=== PATIENT | female | born 1960 | race Caucasian/White ===

== ENCOUNTER 2021-02-05 10:17 | Outpatient (REF) | payer OTHER, SELFPAY ==
--- NOTE | ~2021-02-05 | MM_ITS ---
EXAMINATION: MM SCREENING DIGITAL BREAST TOMOSYNTHESIS, BILATERAL CLINICAL INFORMATION: Screening. Asymptomatic. The lifetime risk of breast cancer based on the Tyrer-Cuzick Model is 6%. COMPARISON: Mammography: 01/31/2020, 06/13/2018, 12/20/2016, 12/08/2016; targeted left breast ultrasound 12/20/2016 TECHNIQUE: Digital breast tomosynthesis is performed in both the craniocaudal and mediolateral oblique views along with computer-aided detection (CAD). Synthesized 2D images are generated from the tomosynthesis. FINDINGS: The breasts are heterogeneously dense, which may obscure small masses (ACR BI-RADS breast composition Category c). There are no significant masses, abnormal calcifications, or other abnormalities. Parenchymal pattern is similar to prior exams. There are some scattered punctate calcifications again noted. The axilla and skin contours are unremarkable. No significant changes. MM/MM tomosynthesis screening BI IMPRESSION: No mammographic evidence of malignancy. ASSESSMENT: BI-RADS 2: Benign RECOMMENDATION: Routine annual mammography screening. This patient's information was entered into a reminder system with a target due date for their next mammogram.
== END 2021-02-05 10:18 | disposition home or self-care (01) ==
LOC: HO.MAMMO 10:17
PROVIDERS: PCP Internal Medicine; Visit Provider Internal Medicine
DX: Z12.31 Encounter for screening mammogram for malignant neoplasm of breast (principal)
CPT/HCPCS: 77063; 77067

== ENCOUNTER 2021-09-14 08:22 | Outpatient (REF) | payer OTHER, SELFPAY ==
[2021-09-16 17:01] LABS: HPV mRNA E6/E7 rflx Not Detected (Not Detected)
== END 2021-09-14 08:23 | disposition home or self-care (01) ==
LOC: HO.LAB 08:22
PROVIDERS: PCP Internal Medicine; Visit Provider Advanced Practice Midwife
DX: Z01.419 Encounter for gynecological examination (general) (routine) without abnormal findings (principal); Z11.51 Encounter for screening for human papillomavirus (HPV)
CPT/HCPCS: 87624; 88142

== ENCOUNTER 2022-02-17 09:18 | Outpatient (REF) | payer OTHER, SELFPAY ==
--- NOTE | ~2022-02-17 | MM_ITS ---
EXAMINATION: MM SCREENING DIGITAL BREAST TOMOSYNTHESIS, BILATERAL CLINICAL INFORMATION: Screening. Asymptomatic. The lifetime risk of breast cancer based on the Tyrer-Cuzick Model is 7%. COMPARISON: Mammography: 02/05/2021, 01/31/2020, 06/26/2018 TECHNIQUE: Digital breast tomosynthesis is performed in both the craniocaudal and mediolateral oblique views along with computer-aided detection (CAD). Synthesized 2D images are generated from the tomosynthesis. FINDINGS: The breasts are heterogeneously dense, which may obscure small masses (ACR BI-RADS breast composition Category c). There are no significant masses, abnormal calcifications, or other abnormalities. Parenchymal pattern borders on average fibroglandular. There is no developing density or architectural abnormality. The axilla and skin contours are unremarkable. No significant changes. MM/MM tomosynthesis screening BI IMPRESSION: No mammographic evidence of malignancy. ASSESSMENT: BI-RADS 1: Negative RECOMMENDATION: Routine annual mammography screening. This patient's information was entered into a reminder system with a target due date for their next mammogram.
== END 2022-02-17 09:19 | disposition home or self-care (01) ==
LOC: HO.MAMMO 09:18
PROVIDERS: PCP Internal Medicine; Visit Provider Internal Medicine
DX: Z12.31 Encounter for screening mammogram for malignant neoplasm of breast (principal)
CPT/HCPCS: 77063; 77067

== ENCOUNTER → 2022-10-26 08:24 | Outpatient (BNVA) | payer OTHER, SELFPAY | PROVIDERS: PCP Internal Medicine; Visit Provider Advanced Practice Midwife ==

== ENCOUNTER 2023-02-20 09:12 | Outpatient (REF) | payer OTHER, SELFPAY | END 2023-02-20 09:13 | disposition home or self-care (01) | LOC: HO.MAMMO 09:12 | PROVIDERS: PCP Internal Medicine; Visit Provider Internal Medicine | DX: Z12.31 Encounter for screening mammogram for malignant neoplasm of breast (principal) | CPT/HCPCS: 77063; 77067 ==

== ENCOUNTER → 2023-02-20 09:30 | Outpatient (BNV) | payer OTHER, SELFPAY | PROVIDERS: PCP Internal Medicine; Visit Provider Radiology Diagnostic Radiology | DX: Z12.31 Encounter for screening mammogram for malignant neoplasm of breast (principal) | CPT/HCPCS: 77063; 77067 ==

== ENCOUNTER 2023-03-14 08:24 | Day surgery (SDC) | payer MEDICARE, SELFPAY ==
--- NOTE | 2023-03-13 09:05 | P.CONAN_ITS ---
Documented by User: Blanca Pang NP 03/13/23 09:05 HPI - Anesthesia Eval Consult details Narrative: 62yo F for Colonoscopy PMFSH Active Problems Active Problems: All Active Problems (Updated 03/13/23 @ 07:40 by Carla Linares RN) Encounter for annual routine gynecological examination (Acute) Past Medical History Medical History Vasovagal episode IBS (irritable bowel syndrome) Hx of abnormal cervical Pap smear Hypertension Family History Family History Family/Other History of breast cancer Father Colon cancer Maternal Grandmother Colon cancer Surgical History Surgical History H/O colonoscopy Social History Social History Alcohol intake: current Alcohol intake frequency: holidays/special occasions only Patient Tobacco Use Status: Former Tobacco user Quit Date: 1014 Use of substances other than those prescribed or required for medical reasons: No Are you DNR?: No Advance Directives: No Advance Directives Information Provided: Yes Sexual orientation: Straight/Heterosexual Gender identity: Female Meds Allergies Allergy/AdvReac Type Severity Reaction Status Date / Time amoxicillin [AMOXICILLIN] Allergy Unknown UNKNOWN Verified 10/26/22 08:33 penicillin V Allergy Unknown Unknown Verified 10/26/22 08:33 Home Medications Medication Instructions Recorded Confirmed Last Taken Type amlodipine 2.5 mg tablet 2.5 mg PO DAILY 09/14/21 03/14/23 Unknown History flaxseed oil 1,000 mg capsule 1,000 mg PO DAILY 09/14/21 03/14/23 Unknown History calcium carbonate 600 mg-vitamin 1 cap PO DAILY 10/26/22 03/14/23 Unknown History D3 12.5 mcg (500 unit) capsule (Calcium 600 with Vitamin D3) Exam Exam Date and Time: March 13, 2023904 Assessment and Plan Assessment Anesthesia Assessment: Chart Reviewed Documented by User: Petra Piedra MD 03/14/23 10:50 [facility], [facility] Past Medical History Medical History Vasovagal episode IBS (irritable bowel syndrome) Hx of abnormal cervical Pap smear Hypertension Family History Family History Family/Other History of breast cancer Father Colon cancer Maternal Grandmother Colon cancer Surgical History Surgical History H/O colonoscopy History of Problems with Anesthesia: No Social History Social History Alcohol intake: current Alcohol intake frequency: holidays/special occasions only Patient Tobacco Use Status: Former Tobacco user Quit Date: 1014 Use of substances other than those prescribed or required for medical reasons: No Are you DNR?: No Advance Directives: No Advance Directives Information Provided: Yes Sexual orientation: Straight/Heterosexual Gender identity: Female Meds Allergies Allergy/AdvReac Type Severity Reaction Status Date / Time amoxicillin [AMOXICILLIN] Allergy Unknown UNKNOWN Verified 10/26/22 08:33 penicillin V Allergy Unknown Unknown Verified 10/26/22 08:33 Home Medications Medication Instructions Recorded Confirmed Last Taken Type amlodipine 2.5 mg tablet 2.5 mg PO DAILY 09/14/21 03/14/23 Unknown History flaxseed oil 1,000 mg capsule 1,000 mg PO DAILY 09/14/21 03/14/23 Unknown History calcium carbonate 600 mg-vitamin 1 cap PO DAILY 10/26/22 03/14/23 Unknown History D3 12.5 mcg (500 unit) capsule (Calcium 600 with Vitamin D3) Exam Airway Mallampati Class: II TM Dist: >3cm Neck ROM: Full Loose/Missing/Broken Teeth: No Heart: RRR Lungs: CTS Assessment and Plan Assessment Anesthesia Assessment: Anesthesia Plan Discussed Final Anesthetic Review History of Problems with Anesthesia: No NPO: Yes ASA Class: II Final Preanesthetic Review: Meds/Allgs Chart Reviewed, Consent Obtained/Reviewed and Anes Risks/Benef Reviewed Patient Risk: Low Procedure Risk: Low Anesthetic Plan Anesthetic Plan: MAC: Disposition: Standard PACU
[2023-03-14 08:41] VITALS: BP 130/83; PULSE 2; RESP 18; TEMP 36.8; O2SAT 96; BMI 21.1
[2023-03-14 09:07] VITALS: BMI 20.6
[2023-03-14] MEDS: Lactated Ringers 1,000 ML 100 ML IVCONT (09:23)
--- NOTE | 2023-03-14 09:24 | PC.NURSE ---
mild vasovagal with iv start, hr low 50's (from 70's) and bp 100/63 (from 156/71) hot flash. hob reverse trendelenburg x 10 ivf LR w.o. immediate, cool cloth and smelling alcohol pad. pt reports feeling good at 0926. 0928 pt reports ok to put hob back up. hob to semifowlers bp /78 hr 54-69 sbrady. pt tolerating well. ivf slowed at 0932
--- NOTE | 2023-03-14 10:48 | MHC.SHP ---
Pre-Procedural Eval Section A Date of Service: 03/14/23 Section B Chief Complaint: Encounter for screening for malignant neoplasm Details of Present Illness: see H*P no changes Relevant Family History (Specify if Yes): No Relevant Social History: None Medical History: No relevant PMH Allergies: Allergies Allergy/AdvReac Type Severity Reaction Status Date / Time amoxicillin [AMOXICILLIN] Allergy Unknown UNKNOWN Verified 10/26/22 08:33 penicillin V Allergy Unknown Unknown Verified 10/26/22 08:33 Review of Systems Sugical H&P ROS: Negative: Constitution, Cardiovascular, Respiratory, Neurological, Psychiatric, Hem-Onc, Allergic/Immunologic, Gastrointestinal, Genitourinary, Musculoskeletal, Integumentary, Endocrine and Eyes/Ears/Nose/Throat Exam Surgical H&P Exam: Normal: HEENT, Normal: Heart, Normal: Lungs, Normal: Extremities, Normal: Abdomen, Normal: Skin and Normal: Neurological Plan Diagnosis/Plan: Unchanged I have reviewed the history and physical and performed a pertinent physical examination on my patient. No changes have occurred unless specified. Time Spent With Patient Time: Total time managing care of this patient today ____ minutes.
[2023-03-14 11:28] VITALS: BP 102/66; PULSE 64; RESP 18; TEMP 36.5; O2SAT 99
[2023-03-14 11:43] VITALS: BP 125/74; PULSE 52; RESP 18; O2SAT 98
--- NOTE | 2023-03-14 12:25 | OP_ITS ---
DATE OF SERVICE: 03/14/2023 SURGEON: Ruslan Alberto MD INDICATIONS: Colon cancer screening. PREOPERATIVE DIAGNOSIS: POSTOPERATIVE DIAGNOSIS: PROCEDURE PERFORMED: Colonoscopy to the terminal ileum with snare polypectomy. ESTIMATED BLOOD LOSS: COMPLICATIONS: ANESTHESIA: Monitored anesthesia care. ASSISTANTS: SPECIMENS: DESCRIPTION OF PROCEDURE: A history and physical was performed. The risks and benefits of the procedure were explained to the patient. Informed consent was obtained. The patient was placed in the left lateral decubitus position. A digital rectal exam was performed and was found to be normal. The Olympus pediatric video colonoscope was introduced into the rectum and advanced to the cecum. The cecum was identified by transillumination, palpation, and identification of ileocecal valve. Examination was performed. The scope was removed. She tolerated the procedure well and was returned to the recovery area in stable condition. FINDINGS: The terminal ileum was examined and appeared normal. The visualized colonic mucosa was within normal limits without evidence of masses or ulcers. In the right colon was an 8 x 10 mm polyp, which was removed with a hot snare and recovered via suction. No other polyps were identified. The quality of the prep was good. Retroflexed examination showed internal hemorrhoids. External hemorrhoids were noted on withdrawal of the colonoscope. IMPRESSION: Colon polyp. RECOMMENDATION: Follow up the biopsy results. MD ROBIN Costa/MIRIAN / [id number]
== END 2023-03-14 12:13 | disposition home or self-care (01) ==
PROVIDERS: PCP Internal Medicine; Visit Provider Internal Medicine Gastroenterology
PROC: 0DJD8ZZ Inspection of Lower Intestinal Tract, Via Natural or Artificial Opening Endoscopic (ICD-10-PCS; CPT 45378; principal; 2023-03-14 09:30)
DX: Z12.11 Encounter for screening for malignant neoplasm of colon (principal); Z86.010 Personal history of colon polyps; Z80.0 Family history of malignant neoplasm of digestive organs; D12.2 Benign neoplasm of ascending colon; K64.8 Other hemorrhoids; K64.4 Residual hemorrhoidal skin tags; K58.2 Mixed irritable bowel syndrome; I10 Essential (primary) hypertension; Z79.899 Other long term (current) drug therapy; Z88.1 Allergy status to other antibiotic agents
CPT/HCPCS: 45385; 88305

== ENCOUNTER 2023-05-08 16:00 | Outpatient (RCR) | payer MEDICARE, SELFPAY | END 2023-05-29 13:41 | disposition home or self-care (01) | LOC: HO.PT 16:00 | PROVIDERS: PCP Internal Medicine; Visit Provider Advanced Practice Midwife | DX: M99.05 Segmental and somatic dysfunction of pelvic region (principal); N81.89 Other female genital prolapse; N81.4 Uterovaginal prolapse, unspecified | CPT/HCPCS: 97112; 97161 ==

== ENCOUNTER 2023-11-07 08:54 | Outpatient (AMB) | payer MEDICARE, SELFPAY ==
[2023-11-07 09:01] VITALS: BP 120/80; BMI 21.4
--- NOTE | 2023-11-07 09:01 | A.OFFVIS_ITS ---
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 She is doing well with no concerns. Saw the pelvic pulling unit floorhand year and feels better. Attempting to eat a healthy diet with calcium and vitamin D and stays active with exercise-walks, yoga and gardens. Currently sexually active w/. Mild irritation w/heat. STI testing offered; she declined. Last pap smear; 2021. Last mammogram; 2022. Colonoscopy is UTD. Denies any family history of breast, ovarian or colon cancer. [facility] Medical History (Updated 11/07/23 @ 09:24 by Annabella Mauricio CNM) Vasovagal episode IBS (irritable bowel syndrome) Hx of abnormal cervical Pap smear Hypertension Surgical History H/O colonoscopy Family History Family/Other History of breast cancer Father Colon cancer Maternal Grandmother Colon cancer Social History Alcohol intake: current Alcohol intake frequency: holidays/special occasions only Patient Tobacco Use Status: Never used Tobacco Sexual orientation: Straight/Heterosexual Gender identity: Female Female Reproductive History Menstrual Age of Menarche: 12 Duration of menses: 3-5 days control method: none Total pregnancies: 4 Full term: 4 Date of last pap smear: 09/15/21 (negative) History of abnormal pap smear: Yes (2014,abn.pap) Date of Mammogram: 02/20/23 (negative) History of abnormal mammogram: No Review of Systems Const All systems reviewed & are unremarkable except as noted in HPI and below Reports as per HPI Eyes Reports no additional complaints ENT Reports no additional complaints Card Reports no additional complaints Resp Reports no additional complaints GI Reports as per HPI and Reports no additional complaints Reports as per HPI Musc Reports no additional complaints Skin/Breast Reports as per HPI Neuro Reports no additional complaints Psych Reports no additional complaints Endo Reports no additional complaints Monty/Lymph Reports no additional complaints Aller/Immun Reports no additional complaints Physical Exam Vital Signs: Last Vital Signs BP 120/80 11/07/23 09:01 BMI result Body Mass Index 21.4 Const General: cooperative, healthy appearing, no acute distress, well developed and alert Orientation/consciousness: patient oriented x3 HEENT Head: Yes normal to inspection Eyes General: appearance normal, both eyes and all related structures Neck Neck: Yes normal visual inspection Thyroid: Thyroid normal Chest Chest palpation & inspection: normal inspection of the chest and other (no puckering, dimpling, peau de orange, retraction, discharge, masses) Breast/axilla inspection: normal inspection of the breasts Breast/axilla palpation: normal palpation of the breasts Resp Effort & Inspection: normal respiratory effort GI Inspection: Yes normal to inspection Palpation (GI): Soft to palpation Rectal Exam - Female: deferred (Internal exam) and visual inspection normal General: Yes bladder normal to palpation External Female Exam: normal external appearance and normal appearance of the urethra Speculum Exam - Vagina: normal appearance of the vagina, normal palpation, normal vaginal discharge and vagina atrophic Speculum Exam - Cervix: normal appearance of the cervix and normal palpation Bimanual exam- vagina & uterus: normal bimanual exam, normal palpation, uterine size normal, bladder normal to palpation, normal palpation and non-tender Bimanual Exam- Adnexa, other: no masses and cystocele Skin General skin exam: no rashes or lesions noted Rashes: no rashes Neuro General: patient oriented x3 Cognition (Neuro): normal cognition Extrem General: Yes normal to inspection Psych Attitude: cooperative Thought process: Normal thought process present Assessment & Plan Assessment & Plan (1) Encounter for well woman exam with routine gynecological exam: Code(s): Z01.419 - Encounter for gynecological examination (general) (routine) without abnormal findings Category: Medical Plan Discussed: Current recommendations for pap smears per ASCCP guidelines. Breast awareness, periodic self breast exams and yearly mammogram. Maintain a healthy lifestyle, well balanced diet including Calcium 1,200 mg and Vitamin D 600 IU daily, and routine exercise. Opts to have bone density ordered by her primary care. Contact the office with any postmenopausal bleeding. Patient verbalizes understanding and agrees to the plan of care. She was given opportunity to ask questions and all questions were answered to the best of my ability. 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 This note is constructed using voice recognition software. While every effort has been made to ensure accuracy, revenue cycle administrator errors may have been included. Coding Level of Care Code Est Pt Prev Care >65y(89943) Diagnoses Encounter for well woman exam with routine gynecological exam Z01.419
== END 2023-11-07 09:50 | disposition home or self-care (01) ==
PROVIDERS: PCP Internal Medicine; Visit Provider Advanced Practice Midwife
DX: Z01.419 Encounter for gynecological examination (general) (routine) without abnormal findings (principal)
CPT/HCPCS: G0101

== ENCOUNTER → 2023-11-07 08:54 | Outpatient (BNVA) | payer MEDICARE, SELFPAY | PROVIDERS: Visit Provider Advanced Practice Midwife | DX: Z01.419 Encounter for gynecological examination (general) (routine) without abnormal findings (principal); Z78.0 Asymptomatic menopausal state | CPT/HCPCS: G0101 ==

== ENCOUNTER 2024-02-26 09:31 | Outpatient (REF) | payer MEDICARE, SELFPAY ==
--- NOTE | ~2024-02-26 | MM_ITS ---
EXAMINATION: MM SCREENING DIGITAL BREAST TOMOSYNTHESIS, BILATERAL CLINICAL INFORMATION: Screening. Asymptomatic. COMPARISON: Mammography: Comparison is made with available priors TECHNIQUE: Digital breast mammography with tomosynthesis is performed in both the craniocaudal and mediolateral oblique views along with computer-aided detection (CAD). FINDINGS: The breasts are heterogeneously dense, which may obscure small masses (ACR BI-RADS breast composition Category c). There are no significant masses, abnormal calcifications, or other abnormalities. MM/MM tomosynthesis screening BI IMPRESSION: No mammographic evidence of malignancy. ASSESSMENT: BI-RADS BI-RADS 1 - Negative RECOMMENDATION: Routine annual mammography screening. 1 year F/U This examination should not preclude the clinical evaluation of a suspicious palpable abnormality. This patient's information was entered into a reminder system with a target due date for their next mammogram. Electronically signed by: Danay Robles DO 03/08/2024 09:45 AM EDT
== END 2024-02-26 09:32 | disposition home or self-care (01) ==
LOC: HO.MAMMO 09:31
PROVIDERS: PCP Internal Medicine; Visit Provider Internal Medicine
DX: Z12.31 Encounter for screening mammogram for malignant neoplasm of breast (principal)
CPT/HCPCS: 77063; 77067

== ENCOUNTER → 2024-02-26 09:45 | Outpatient (BNV) | payer MEDICARE, SELFPAY | PROVIDERS: PCP Internal Medicine; Visit Provider Internal Medicine | DX: Z12.31 Encounter for screening mammogram for malignant neoplasm of breast (principal) | CPT/HCPCS: 77063; 77067 ==

== ENCOUNTER 2024-03-15 09:52 | Outpatient (REF) | payer MEDICARE, SELFPAY ==
--- NOTE | ~2024-03-15 | MM_ITS ---
EXAMINATION: BONE DENSITOMETRY CLINICAL INDICATION: Menopausal. COMPARISON: This is the patient's baseline examination. TECHNIQUE: Using a [employer] DXA System (software version: 13.1) manufactured by [employer], dual-energy x-ray absorptiometry was performed of the lumbar spine and left hip. The images are of good technical quality. Summary results are attached. FINDINGS: LEFT FEMUR, NECK: BMD 0.714 g/cm2, Z-score -0.7, T-score -2.3, osteopenia. LEFT FEMUR, TOTAL: BMD 0.731 g/cm2, Z-score -0.8, T-score -2.2, osteopenia. AP SPINE L1-L2 (excluding L3 and L4): The data of L1-L4 has been changed to exclude the L3 and L4 vertebral bodies, because degenerative sclerosis at these levels may cause overestimation of lumbar spine density. BMD 0.886 g/cm2, Z-score -0.5, T-score -2.3, osteopenia. IDENTIFIED RISK FACTORS: Menopause. HISTORY OF FRACTURE: None listed. MEDICATIONS: Calcium supplements or multivitamin, vitamin D. MM/XR DEXA axial skeleton IMPRESSION: 1. DIAGNOSIS: Osteopenia based on the lowest T-score value of -2.3 in the femoral neck and lumbar spine applying World Health Organization criteria. 2. 10-YEAR FRACTURE RISK PREDICTION, FRAX: Major osteoporotic fracture (clinical spine, forearm, hip or shoulder) 11.7%. Hip fracture 2.4%. 3. Treatment Recommendations: NOF guidelines recommend consideration for treatment in postmenopausal women and men age 50 and older presenting with the following: -A hip or vertebral (clinical or morphometric) fracture. -T-score less than or equal to -2.5 at the femoral neck or spine after appropriate evaluation to exclude secondary causes. -Low bone mass at the hip or spine and a 10-year fracture probability by FRAX of greater than or equal to 3% for hip fracture or greater than or equal to 20% for major osteoporotic fracture based on the [place] adapted WHO algorithm. 4. Other Recommendations: All treatment decisions require clinical judgment and consideration of individual patient factors, including patient preferences, comorbidities, previous drug use, risk factors not captured in the FRAX model (e.g. frailty, falls, vitamin D deficiency, increased bone turnover, interval significant decline in bone density) and possible under or overestimation of fracture risk by FRAX. Additional medical evaluation for secondary cause of low bone mineral density may be appropriate. FUTURE SCAN RECOMMENDATION: People with diagnosed cases of osteoporosis or at high risk for fracture should have regular bone mineral density tests. For patients eligible for Medicare, routine testing is allowed once every 2 years. The testing frequency can be increased to one year for patients who have rapidly progressing disease, those who are receiving or discontinuing medical therapy to restore bone mass, or have additional risk factors. Electronically signed by: Asael Blackman MD 03/25/2024 09:09 AM EDT
== END 2024-03-15 09:53 | disposition home or self-care (01) ==
LOC: HO.MAMMO 09:52
PROVIDERS: PCP Internal Medicine; Visit Provider Internal Medicine
DX: Z13.820 Encounter for screening for osteoporosis (principal); Z78.0 Asymptomatic menopausal state
CPT/HCPCS: 77080

== ENCOUNTER 2025-03-07 09:46 | Outpatient (REF) | payer MEDICARE, SELFPAY ==
--- NOTE | ~2025-03-07 | MM_ITS ---
EXAMINATION: MM SCREENING DIGITAL BREAST TOMOSYNTHESIS, BILATERAL CLINICAL INFORMATION: Screening. Asymptomatic. COMPARISON: Mammography: Comparison is made with available priors TECHNIQUE: Digital breast mammography with tomosynthesis is performed in both the craniocaudal and mediolateral oblique views along with computer-aided detection (CAD). FINDINGS: The breasts are heterogeneously dense, which may obscure small masses. There are no significant masses, abnormal calcifications, or other abnormalities. MM/MM tomosynthesis screening BI IMPRESSION: No mammographic evidence of malignancy. ASSESSMENT: BI-RADS Category 1: Negative RECOMMENDATION: Routine annual mammography screening. 1 year F/U This examination should not preclude the clinical evaluation of a suspicious palpable abnormality. This patient's information was entered into a reminder system with a target due date for their next mammogram. Electronically signed by: Danay Robles DO 03/11/2025 09:06 AM [facility]
--- OUTSIDE RECORDS SUMMARY | 2025-03-07 10:51 | XMS_ITS | Patient Health Record ---
Author Organization [facility] Address [address] [place] [address] Care Team Providers Care Building Manager Name Role Phone Raul Brandt MD Primary Care Provider Ruslan Navarro Jr Unavailable [phone] Allergies Allergen (clinical drug ingredient) Drug/Non Drug Allergy documented on EMR Reaction Allergy Type Onset Date Status amoxicillin Amoxicillin Unknown Drug Allergy Act malick Reason For Referral No Information Medications Medication SIG (Take, Route, Frequency, Duration) Notes Start Date End Date Status MiraLax (colon prep) 17 GM/SCOOP mixed with Gatorade or Crystal Light Orally begin at 5:00 p.m. the day before the procedure for 1 day 01/30/2023 Active Flax Seed Oil 1000 MG 1 Orally QD Active amLODIPine Besylate 10 MG 1 tablet Orally Once a day Active Calcium Active Problems Problem Type SNOMED Code ICD Code Onset Dates Problem Status W/U Status Risk Notes Problem 550306534 Colon cancer screening (Z12.11) Active confirmed Problem 636310328 Long-term curren t use of high risk medication other than anticoagulant (Z79.899) Active confirmed Problem 85694629 Other irritable bowel syndrome (K58.8) Active confirmed Problem 684707021 Abdominal crampi ng (R10.9) Active confirmed Plan Of Treatment Future Test Test Name Order Date COLONOSCOPY 08/23/2012 COLONOSCOPY 11/16/2017 COLONOSCOPY 12/27/2017 COLONOSCOPY 01/30/2023 Insurance Providers Payer Name Payer Address Payer Phone Subscriber Number Group Number Insured Name Patient Relationship to Insured Coverage Start Date Coverage End Date MEDICARE OF [employer] [address] [place] [address] [id number] LUIS A CASTELLANOS Self - patient is the insured [employer] ATT[employer] CLAIMS [address] [place] [address] [id number] LUIS A CASTELLANOS Self - patient is the insured Medical (General) History Medical History History ICD Code colonoscopy 12/29/17, tubular adenoma, fi ve-year followup hypertension Irritable bowel syndrome Surgical History Surgery Date(Month/Year) laser surgical surgery for atypical pap smears
== END 2025-03-07 09:47 | disposition home or self-care (01) ==
LOC: HO.MAMMO 09:46
PROVIDERS: PCP Internal Medicine; Visit Provider Internal Medicine
DX: Z12.31 Encounter for screening mammogram for malignant neoplasm of breast (principal)
CPT/HCPCS: 77063; 77067

== ENCOUNTER → 2025-03-07 10:00 | Outpatient (BNV) | payer MEDICARE, SELFPAY | PROVIDERS: PCP Internal Medicine; Visit Provider Internal Medicine | DX: Z12.31 Encounter for screening mammogram for malignant neoplasm of breast (principal) | CPT/HCPCS: 77063; 77067 ==

== ENCOUNTER 2025-06-11 13:12 | Outpatient (AMB) | payer MEDICARE, SELFPAY ==
[2025-06-11 13:32] VITALS: BP 132/70; BMI 22.7
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
--- OUTSIDE RECORDS SUMMARY | 2025-06-11 14:43 | XMS_ITS | Patient Health Record ---
Author Organization [facility] Address [address] [place] [address] Care Team Providers Care Supervisor Cigar Processing Name Role Phone GEORGE COLMEAN Primary Care Provider [phone] [place], NURSING Unavailable [phone] Allergies Allergen (clinical drug ingredient) Drug/Non Drug Allergy documented on EMR Reaction Allergy Type Onset Date Status amoxicillin Amoxicillin Amoxicillin Drug Allergy 03/20/2009 Active Reason For Referral No Information Medications Medication SIG (Take, Route, Frequency, Duration) Notes Start Date End Date Status Atorvastatin Calcium 10 MG Tablet 1 tablet Orally Once a day 08/19/2024 Active amLODIPine Besylate 2.5 MG Tablet 1 tablet Orally Once a day Active Immunizations Vaccine Route Administration Date Status Comme nts Influenza, Fluarix Quad Unknown 03/21/2012 Administered Pfizer COVID-19,mRNA, LNP-S, PF, 30mcg/0.3mL dose Unknown 09/06/2020 Administered [id number] IM Intramuscular 08/10/2023 Administered Td (Tetanus Diphtheria) Unknown 03/20/2009 Administered TDAP IM Intramuscular 07/11/2017 Administered Zoster recombinant Unknown 03/13/2019 Administered Zoster recombinant Unknown 06/20/2019 Administered Social History Tobacco Use: Social History Observation Description Date Details (start date - stop date) Never Smoker NA - NA Social History Drug/Alcohol: Social Info Question Answer Notes Alcohol Screen Did you have a drink containing alcohol in the past year? Yes How often did you have a drink containing alcohol in the past year? Monthly or less (1 point) How many drinks did you have on a tpical day when you were drinking in the past year? 1 or 2 (0 points) How often did you have six or more drinks on one occassion in the past year? Never (0 points) Points 1 Interpretation Negative Tobacco Use: Social Info Question Answer Notes Smoking Are you a: never smoker Additional Details Category Social Info Options Details General asbestos exposure: no alcohol use: yes occasionally drug use: no Coffee/Tea/Soda: yes Tea, Coffee, 2 Marital Status experience no Living with smokers in household no Problems Problem Type SNOMED Code ICD Code Onset Dates Problem Status W/U Status Risk Notes Problem Mixed hyperlipidemia (243169370) Mixed hyperlipidemia (E78.2) Active confirmed Problem Essential hypertension (81614977) Essential (primary) hypertension (I10) 07/25/19 12 Active confirmed Vital Signs Blood pressure diastolic 70 mm Hg 04/17/2025 Height 63.50 in 04/17/2025 Blood pressure systolic 126 mm Hg 04/17/2025 Weight 128.8 lbs 04/17/2025 BMI 22.46 kg/m2 04/17/2025 Encounters Encounter Location Date Provider Diagnosis [place] [id number] 03/06/2025 [facility] Essential (primary) hypertension I10 ; Mixed hyperlipidemia E78.2 and Encounter for general adult medical examination with abnormal findings Z00.01 [place] [id number] 04/17/2025 [facility] Essential (primary) hypertension I10 and Mixed hyperlipidemia E78.[address] [address] 03/06/2025 [facility] Medicare annual wellness visit, subsequent Z00.00 [facility] [address] [place], [place] [phone] 08/22/2024 [facility] Essential (primary) hypertension I10 and Mixed hyperlipidemia E78.2 [facility] [address] [place] [phone] 08/18/2024 [facility] [address] [place], [place] [phone] 02/09/2025 [facility] Essential (primary) hypertension I10 and Mixed hyperlipidemia E78.[address] [address] 10/17/2024 [facility] Essential (primary) hypertension I10 [place] [address] [place] [address] 10/16/2024 [facility] Assessments Encounter Date Diagnosis (ICD Code) Assessment Notes Treatment Notes Treatment Clinical Notes Section Notes 03/06/2025 Mixed hyperlipidemia (ICD-10 - E78.2) 1. Hypertension: High today Will maintain on presnet amlodipine and recheck in 6 weeks 2. Hyperlipidemia : Much better on atorvastatin Continue 3. RHCM: Mammogram is set up for next week. Colonoscopy appears to be due next year. She will double check with Dr. Alberto. 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 She is up-to-date with fasting blood work. She has a flu shot set up to get with her . She has had Prevnar 02/09/2025 Essential (primary) hypertension (ICD-10 - I10) 02/09/2025 Mixed hyperlipidemia (ICD-10 - E78.2) 08/22/2024 Essential (primary) hypertension (ICD-10 - I10) 1 hypertension: Well-controlled on present amlodipine. No changes made today 2. Hyperlipidemia: Newly on atorvastatin. She has made significant nutrition efforts but without significant improvement. Will plan to recheck her lipid panel at her physical 08/22/2024 Mixed hyperlipidemia (ICD-10 - E78.2) 1 hypertension: Well-controlled on present amlodipine. No changes made today 2. Hyperlipidemia: Newly on atorvastatin. She has made significant nutrition efforts but without significant improvement. Will plan to recheck her lipid panel at her physical 10/17/2024 Essential (primary) hypertension (ICD-10 - I10) 03/06/2025 Medicare annual wellness visit, subsequent (ICD-10 - Z00.00) 04/17/2025 Essential (primary) hypertension (ICD-10 - I10) 1 hypertension: Better today. Will continue current amlodipine. No changes made 2. Hyperlipidemia: Well-controlled on atorvastatin. Will continue same 04/17/2025 Mixed hyperlipidemia (ICD-10 - E78.2) 1 hypertension: Better today. Will continue current amlodipine. No changes made 2. Hyperlipidemia: Well-controlled on atorvastatin. Will continue same 03/06/2025 Essential (primary) hypertension (ICD-10 - I10) 1. Hypertension: High today Will maintain on presnet amlodipine and recheck in 6 weeks 2. Hyperlipidemia : Much better on atorvastatin Continue 3. RHCM: Mammogram is set up for next week. Colonoscopy appears to be due next year. She will double check with Dr. Alberto. 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 She is up-to-date with fasting blood work. She has a flu shot set up to get with her . She has had Prevnar 03/06/2025 Encounter for general adult medical examination with abnormal findings (ICD-10 - Z00.01) 1. Hypertension: High today Will maintain on presnet amlodipine and recheck in 6 weeks 2. Hyperlipidemia : Much better on atorvastatin Continue 3. RHCM: Mammogram is set up for next week. Colonoscopy appears to be due next year. She will double check with Dr. Alberto. 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 She is up-to-date with fasting blood work. She has a flu shot set up to get with her . She has had Prevnar Plan Of Treatment Future Test Test Name Order Date LIPID PANEL 01/21/2023 COMPREHENSIVE METABOLIC PANEL 01/21/2023 LIPID PANEL 08/10/2023 CBC (COMPLETE BLOOD COUNT) 08/10/2023 COMPREHENSIVE METABOLIC PANEL 08/10/2023 CBC, Platelet, w/o Differential-[id number] 03/05/2025 Lipid Panel-[id number] 03/05/2025 Comp. Metabolic Panel [id number] 2024 Next Appt Details Provider Name:GEORGE COLEMAN , 10/16/2025 08:45:00 AM, [address] [place], [address], Insurance Providers Payer Name Payer Address Payer Phone Subscriber Number Group Number Insured Name Patient Relationship to Insured Coverage Start Date Coverage End Date MEDICARE [employer] [address] [facility] [place] [address] [id number] LUIS A TORRES Self - patient is the insured 4 [employer] [address] [place] [address] [phone] [id number] LUIS A TORRES Self - patient is the insured 4 Medical (General) History Medical History History ICD Code Hypertension, Asthma, HCP: Steven Torres [phone] Surgical History Surgery Date(Month/Year)
--- OUTSIDE RECORDS SUMMARY | 2025-06-11 14:43 | XMS_ITS | Patient Health Record ---
Author Organization [facility] Address [address] [place] [phone] Care Team Providers Care Revenue Accounting Manager Name Role Phone Raul Brandt MD Primary Care Provider Ruslan Navarro Jr Unavailable Allergies Allergen (clinical drug ingredient) Drug/Non Drug Allergy documented on EMR Reaction Allergy Type Onset Date Status amoxicillin Amoxicillin Unknown Drug Allergy Act malick Reason For Referral No Information Medications Medication SIG (Take, Route, Frequency, Duration) Notes Start Date End Date Status MiraLax (colon prep) 17 GM/SCOOP Powder mixed with Gatorade or Crystal Light Orally begin at 5:00 p.m. the day before the procedure; Duration: 1 day 01/30/2023 Active Flax Seed Oil 1000 MG Capsule 1 Orally QD Active amLODIPine Besylate 10 MG Tablet 1 tablet Orally Once a day A ctive Calcium Active Social History Social History Additional Details Category Social Info Options Details Miscellaneous: Marital status: Occupation: retired Problems Problem Type SNOMED Code ICD Code Onset Dates Problem Status W/U Status Risk Notes Problem Colon cancer screening (317947694) Colon cancer screening (Z12.11) Active confirmed Problem Long-term current use of drug therapy (825445016) Long-term current use of high risk medication other than anticoagulant (Z79.899) Active confirmed Problem Irritable bowel syndrome (11797853) Other irritable bowel syndrome (K58.8) Active confirmed Problem Abdominal pain (60181955) Abdominal cramping (R10.9) Active confirmed Plan Of Treatment Future Test Test Name Order Date COLONOSCOPY 08/23/2012 COLONOSCOPY 11/16/2017 COLONOSCOPY 12/27/2017 COLONOSCOPY 01/30/2023 Insurance Providers Payer Name Payer Address Payer Phone Subscriber Number Group Number Insured Name Patient Relationship to Insured Coverage Start Date Coverage End Date MEDICARE OF [place] [address] [place] [id number] LUIS A CASTELLANOS Self - patient is the insured [employer] CLAIM[employer] [address] [place] [phone] [id number] LUIS A CASTELLANOS Self - patient is the insured Medical (General) History Medical History History ICD Code colonoscopy 12/29/17, tubular adenoma, fi ve-year followup hypertension Irritable bowel syndrome Surgical History Surgery Date(Month/Year) laser surgical surgery for atypical pap smears
== END 2025-06-11 14:19 | disposition home or self-care (01) ==
LOC: HO.HWSM 13:12
PROVIDERS: PCP Internal Medicine; Visit Provider Advanced Practice Midwife
DX: Z01.419 Encounter for gynecological examination (general) (routine) without abnormal findings (principal); Z12.39 Encounter for other screening for malignant neoplasm of breast
CPT/HCPCS: G0101; Q0091

== ENCOUNTER → 2025-06-11 13:12 | Outpatient (BNVA) | payer MEDICARE, SELFPAY | PROVIDERS: PCP Internal Medicine; Visit Provider Advanced Practice Midwife | DX: Z01.419 Encounter for gynecological examination (general) (routine) without abnormal findings (principal); Z12.39 Encounter for other screening for malignant neoplasm of breast; M85.80 Other specified disorders of bone density and structure, unspecified site; N81.10 Cystocele, unspecified; G47.00 Insomnia, unspecified; Z78.0 Asymptomatic menopausal state; Z80.3 Family history of malignant neoplasm of breast | CPT/HCPCS: G0101; Q0091 ==